=== PATIENT | female | born 1975 | race Caucasian/White ===

== ENCOUNTER 2024-10-10 09:58 | Outpatient (CLI) | payer OTHER ==
[~2024-10-10 09:58] MED LIST: SYNTHROID50 MCG
== END 2024-10-10 10:04 | disposition home or self-care (01) ==
LOC: SONOGRAMA 09:58
PROVIDERS: ATTEND Pathology Anatomic Pathology & Clinical Pathology
DX: E04.1 Nontoxic single thyroid nodule (principal); D34 Benign neoplasm of thyroid gland